=== PATIENT | male | born 1995 | race Caucasian/White ===

== ENCOUNTER 2017-02-14 23:40 | Inpatient (IN) | payer OTHER ==
[~2017-02-14] VITALS: Ht 170.2 cm; Wt 56.3 kg
[~2017-02-14 23:40] MED LIST: ACID REDUCER75 MG PO; BENTYL20 MG PO; FLOVENT 44120 INHALA IH; LORATADINE10 M3 PO; NAPROSYN500 MG PO; NASA MIST SALIN75 ML BOTH NARES; PROAIR HFA8.5 GM IH; ZOFRAN ODT4 MG PO
[2017-02-15 00:30] LABS: MCH 26.7 PG (29.0-34.0); MCHC 32.8 G/DL (30.0-36.0); MCV 81.4 FL (86-99); MEAN PLAT.VOLUME 9.2 uM^3 (9.0-12.4); PLATELET COUNT 494 K/uL (156-360); RBC DIS.WIDTH-CV 11.9 % (11.8-14.6); RBC DIS.WIDTH-SD 35.5 % (39-53); RED BLOOD COUNT 4.79 M/uL (4.00-5.50); WHITE BLOOD COUNT 13.7 K/uL (4.1-10.2)
[2017-02-15 00:39] LABS: CHLORIDE 102 mEq/L (99-109); POTASSIUM 3.6 mEq/L (3.7-5.4); SODIUM 139 mEq/L (136-147)
[2017-02-15 00:41] LABS: GLUCOSE 107 mg/dL (70-99)
[2017-02-15 00:43] LABS: ANION GAP 14 MEQ/L (2-14); TOTAL BILIRUBIN 0.5 mg/dL (0.0-1.0)
[2017-02-15 00:45] LABS: ALKALINE PHOSPHATASE 138 IU/L (3-129); GFR ESTIMATE (CALCULATED) > 59 mL/min/
[2017-02-15 00:46] LABS: UREA NITROGEN (BUN) 11 mg/dL (9-23)
[2017-02-15] MEDS ORDERED: NAPROXEN500 MG PO (00:46)
[2017-02-15 00:48] LABS: LIPASE 12 U/L (1.0-51.0)
[2017-02-15 01:53] LABS: BILIRUBIN NEGATIVE; BLOOD NEGATIVE; COLOR YELLOW ((YELLOW)); GLUCOSE (STRIP) NEGATIVE; KETONES 5; LEUKOCYTES NEGATIVE; NITRITE NEGATIVE; PROTEIN (STRIP) NEGATIVE; SPECIFIC GRAVITY 1.006 (1.000-1.030)
[2017-02-15 01:58] LABS: ADD MIUA? NO; UCUL ADDED? NO
[2017-02-15 03:28] VITALS: BP 134/86
[2017-02-15 08:00] VITALS: BP 134/94
[2017-02-15 12:00] VITALS: BP 129/85
[2017-02-15 16:15] VITALS: BP 132/86
[2017-02-15 20:08] VITALS: BP 133/85
[2017-02-15 22:56] VITALS: BP 137/96
[2017-02-16 06:22] LABS: BASOPHIL COUNT 0.1 K/uL (0-0.1); EOSINOPHIL (%) 1.5 % (0-5); EOSINOPHIL COUNT 0.2 K/uL (0-0.3); HEMATOCRIT 34.2 % (38.0-50.0); IMMATURE GRANULOCYTE (%) 1.3 % (0.0-0.7); IMMATURE GRANULOCYTE COUNT 0.2 K/uL; INSTRUMENT ABS NEUTROPHIL CT 10.8 K/uL; LYMPHOCYTE COUNT 1.8 K/uL (1.0-2.8); MCH 26.9 PG (29.0-34.0); MCHC 32.5 G/DL (30.0-36.0); MEAN PLAT.VOLUME 9.4 uM^3 (9.0-12.4); MONOCYTE (%) 10.7 % (3-12); MONOCYTE COUNT 1.6 K/uL (0-0.8); NEUTROPHIL COUNT 10.8 K/uL (1.8-6.4); PLATELET COUNT 396 K/uL (156-360); RBC DIS.WIDTH-CV 12.2 % (11.8-14.6); RBC DIS.WIDTH-SD 37.2 % (39-53); RED BLOOD COUNT 4.12 M/uL (4.00-5.50); WHITE BLOOD COUNT 14.6 K/uL (4.1-10.2)
[2017-02-16 08:28] VITALS: BP 132/77
[2017-02-16 09:18] LABS: INTER. NORMALIZED RATIO 1.4; PROTHROMBIN TIME 15.5 SEC (10.2-12.9)
[2017-02-16 09:21] LABS: PTT 28.2 SEC (25-37)
[2017-02-16 16:30] VITALS: BP 117/74
[2017-02-16 23:45] VITALS: BP 119/64
[2017-02-17 04:01] VITALS: BP 113/64
[2017-02-17 05:33] LABS: BASOPHIL COUNT 0.1 K/uL (0-0.1); EOSINOPHIL (%) 2.3 % (0-5); EOSINOPHIL COUNT 0.3 K/uL (0-0.3); HEMATOCRIT 34.1 % (38.0-50.0); IMMATURE GRANULOCYTE (%) 1.5 % (0.0-0.7); IMMATURE GRANULOCYTE COUNT 0.2 K/uL; INSTRUMENT ABS NEUTROPHIL CT 9.1 K/uL; LYMPHOCYTE COUNT 2.3 K/uL (1.0-2.8); MCHC 32.3 G/DL (30.0-36.0); MCV 83.8 FL (86-99); MEAN PLAT.VOLUME 9.5 uM^3 (9.0-12.4); MONOCYTE (%) 8.6 % (3-12); MONOCYTE COUNT 1.1 K/uL (0-0.8); NEUTROPHIL (%) 69.7 % (45-76); NEUTROPHIL COUNT 9.1 K/uL (1.8-6.4); PLATELET COUNT 416 K/uL (156-360); RBC DIS.WIDTH-CV 12.2 % (11.8-14.6); RBC DIS.WIDTH-SD 37.2 % (39-53); RED BLOOD COUNT 4.07 M/uL (4.00-5.50)
[2017-02-17 08:09] VITALS: BP 121/87
[2017-02-17 16:22] VITALS: BP 129/91
[2017-02-17 23:35] VITALS: BP 111/70
[2017-02-18 06:48] LABS: HEMATOCRIT 25.4 % (38.0-50.0); MCH 27.6 PG (29.0-34.0); NRBC (%) 0.2 /100 WBC (0-0); RBC DIS.WIDTH-CV 12.6 % (11.8-14.6); RBC DIS.WIDTH-SD 45.5 % (39-53); WHITE BLOOD COUNT 8.9 K/uL (4.1-10.2)
[2017-02-18 06:50] LABS: MCV 98.8 FL (86-99); RED BLOOD COUNT 2.57 M/uL (4.00-5.50)
[2017-02-18 07:03] LABS: MEAN PLAT.VOLUME 9.4 uM^3 (9.0-12.4)
[2017-02-18 07:09] LABS: PLATELET COUNT 270 K/uL (156-360)
[2017-02-18 08:08] VITALS: BP 121/80
[2017-02-18 09:19] LABS: HEMATOCRIT 36.7 % (38.0-50.0); MCH 26.9 PG (29.0-34.0); MCHC 31.3 G/DL (30.0-36.0); MEAN PLAT.VOLUME 9.4 uM^3 (9.0-12.4); RBC DIS.WIDTH-CV 12.5 % (11.8-14.6); RBC DIS.WIDTH-SD 39.2 % (39-53); WHITE BLOOD COUNT 11.9 K/uL (4.1-10.2)
[2017-02-18 09:22] LABS: MCV 85.9 FL (86-99); PLATELET COUNT 436 K/uL (156-360); RED BLOOD COUNT 4.27 M/uL (4.00-5.50)
[2017-02-18 16:16] VITALS: BP 131/92
[2017-02-18 23:17] VITALS: BP 117/78
[2017-02-19 07:05] LABS: BASOPHIL COUNT 0.1 K/uL (0-0.1); EOSINOPHIL (%) 3.5 % (0-5); EOSINOPHIL COUNT 0.5 K/uL (0-0.3); HEMATOCRIT 39.3 % (38.0-50.0); IMMATURE GRANULOCYTE (%) 1.6 % (0.0-0.7); IMMATURE GRANULOCYTE COUNT 0.2 K/uL; MCH 26.1 PG (29.0-34.0); MCHC 31.3 G/DL (30.0-36.0); MCV 83.3 FL (86-99); MONOCYTE (%) 8.7 % (3-12); MONOCYTE COUNT 1.2 K/uL (0-0.8); NEUTROPHIL (%) 71.4 % (45-76); PLATELET COUNT 476 K/uL (156-360); RBC DIS.WIDTH-CV 12.3 % (11.8-14.6); RBC DIS.WIDTH-SD 37.4 % (39-53); RED BLOOD COUNT 4.72 M/uL (4.00-5.50)
[2017-02-19 07:30] LABS: ALKALINE PHOSPHATASE 89 IU/L (3-129); ANION GAP 9 MEQ/L (2-14); CHLORIDE 105 MEQ/L (99-109); GFR ESTIMATE (CALCULATED) > 59 mL/min/; GLUCOSE 107 mg/dL (70-99); SAMPLE HEMOLYSIS CHECK 0; SAMPLE ICTERIC CHECK 0; SAMPLE LIPEMIA CHECK 0; SODIUM 140 MEQ/L (136-147); TOTAL BILIRUBIN 0.4 MG/DL (0.0-1.0); UREA NITROGEN (BUN) 4 mg/dL (9-23)
[2017-02-19 07:31] LABS: POTASSIUM 4.8 MEQ/L (3.7-5.4)
[2017-02-19 07:32] LABS: ALKALINE PHOSPHATASE 85 IU/L (3-129); ANION GAP 7 MEQ/L (2-14); CHLORIDE 106 MEQ/L (99-109); DIRECT BILIRUBIN 0.1 mg/dL (0.0-0.3); GFR ESTIMATE (CALCULATED) > 59 mL/min/; GLUCOSE 107 mg/dL (70-99); MAGNESIUM 2.1 mg/dl (1.3-2.7); POTASSIUM 4.7 MEQ/L (3.7-5.4); PREALBUMIN 14.2 mg/dL (10-40); SAMPLE HEMOLYSIS CHECK 0; SAMPLE ICTERIC CHECK 0; SAMPLE LIPEMIA CHECK 0; SODIUM 139 MEQ/L (136-147); TOTAL BILIRUBIN 0.4 MG/DL (0.0-1.0); UREA NITROGEN (BUN) 4 mg/dL (9-23)
[2017-02-19 07:47] LABS: TRIGLYCERIDES 73 MG/DL (Normal: <150)
[2017-02-19 08:17] VITALS: BP 125/79
[2017-02-19 15:16] VITALS: BP 147/86
[2017-02-19 23:34] VITALS: BP 112/77
[2017-02-20 06:50] LABS: BASOPHIL COUNT 0.1 K/uL (0-0.1); EOSINOPHIL (%) 3.5 % (0-5); EOSINOPHIL COUNT 0.5 K/uL (0-0.3); HEMATOCRIT 39.5 % (38.0-50.0); IMMATURE GRANULOCYTE (%) 1.1 % (0.0-0.7); IMMATURE GRANULOCYTE COUNT 0.2 K/uL; INSTRUMENT ABS NEUTROPHIL CT 11.2 K/uL; LYMPHOCYTE COUNT 1.8 K/uL (1.0-2.8); MCH 26.4 PG (29.0-34.0); MCHC 31.6 G/DL (30.0-36.0); MCV 83.5 FL (86-99); MONOCYTE (%) 7.9 % (3-12); MONOCYTE COUNT 1.2 K/uL (0-0.8); NEUTROPHIL (%) 74.7 % (45-76); NEUTROPHIL COUNT 11.2 K/uL (1.8-6.4); PLATELET COUNT 516 K/uL (156-360); RBC DIS.WIDTH-CV 12.2 % (11.8-14.6); RBC DIS.WIDTH-SD 37.3 % (39-53); RED BLOOD COUNT 4.73 M/uL (4.00-5.50)
[2017-02-20 07:21] LABS: ANION GAP 8 MEQ/L (2-14); CHLORIDE 104 MEQ/L (99-109); GFR ESTIMATE (CALCULATED) > 59 mL/min/; GLUCOSE 95 mg/dL (70-99); POTASSIUM 4.6 MEQ/L (3.7-5.4); SAMPLE HEMOLYSIS CHECK 0; SAMPLE ICTERIC CHECK 0; SAMPLE LIPEMIA CHECK 0; SODIUM 139 MEQ/L (136-147); UREA NITROGEN (BUN) 5 mg/dL (9-23)
[2017-02-20 07:58] VITALS: BP 133/79
[2017-02-20 15:35] VITALS: BP 118/84
[2017-02-20 23:32] VITALS: BP 126/73
[2017-02-21 05:00] VITALS: BP 119/83
[2017-02-21 06:41] LABS: ANION GAP 13 MEQ/L (2-14); CHLORIDE 101 MEQ/L (99-109); GFR ESTIMATE (CALCULATED) > 59 mL/min/; GLUCOSE 111 mg/dL (70-99); MAGNESIUM 1.7 mg/dl (1.3-2.7); POTASSIUM 4.2 MEQ/L (3.7-5.4); SAMPLE HEMOLYSIS CHECK 0; SAMPLE ICTERIC CHECK 0; SAMPLE LIPEMIA CHECK 0; SODIUM 135 MEQ/L (136-147); UREA NITROGEN (BUN) 12 mg/dL (9-23)
[2017-02-21 07:29] VITALS: BP 129/77
[2017-02-21 09:09] LABS: BASOPHIL COUNT 0.1 K/uL (0-0.1); EOSINOPHIL (%) 0.4 % (0-5); EOSINOPHIL COUNT 0.2 K/uL (0-0.3); IMMATURE GRANULOCYTE (%) 0.9 % (0.0-0.7); IMMATURE GRANULOCYTE COUNT 0.3 K/uL; INSTRUMENT ABS NEUTROPHIL CT 30.9 K/uL; LYMPHOCYTE COUNT 1.2 K/uL (1.0-2.8); MEAN PLAT.VOLUME 9.5 uM^3 (9.0-12.4); MONOCYTE (%) 4.3 % (3-12); MONOCYTE COUNT 1.5 K/uL (0-0.8); NEUTROPHIL (%) 90.5 % (45-76); NEUTROPHIL COUNT 30.9 K/uL (1.8-6.4); PLATELET COUNT 491 K/uL (156-360)
[2017-02-21 09:34] LABS: MCH 26.5 PG (29.0-34.0); MCHC 31.5 G/DL (30.0-36.0); MCV 84.2 FL (86-99); RBC DIS.WIDTH-CV 12.4 % (11.8-14.6); RBC DIS.WIDTH-SD 37.3 % (39-53); RED BLOOD COUNT 4.87 M/uL (4.00-5.50); WHITE BLOOD COUNT 34.2 K/uL (4.1-10.2)
[2017-02-21 15:31] VITALS: BP 130/78
[2017-02-21 23:23] VITALS: BP 123/81
[2017-02-22 06:24] LABS: HEMATOCRIT 36.3 % (38.0-50.0); MCH 26.6 PG (29.0-34.0); MCHC 31.7 G/DL (30.0-36.0); MCV 83.8 FL (86-99); RBC DIS.WIDTH-CV 12.7 % (11.8-14.6); RBC DIS.WIDTH-SD 38.6 % (39-53); RED BLOOD COUNT 4.33 M/uL (4.00-5.50); WHITE BLOOD COUNT 17.3 K/uL (4.1-10.2)
[2017-02-22 06:27] LABS: MEAN PLAT.VOLUME 9.5 uM^3 (9.0-12.4); PLAT.SUFFICIENCY INCREASED
[2017-02-22 06:39] LABS: PLATELET COUNT 337 K/uL (156-360)
[2017-02-22 06:55] LABS: ANION GAP 9 MEQ/L (2-14); CHLORIDE 111 MEQ/L (99-109); GFR ESTIMATE (CALCULATED) > 59 mL/min/; POTASSIUM 4.2 MEQ/L (3.7-5.4); SAMPLE HEMOLYSIS CHECK 0; SAMPLE ICTERIC CHECK 0; SAMPLE LIPEMIA CHECK 0; UREA NITROGEN (BUN) 9 mg/dL (9-23)
[2017-02-22 06:56] LABS: GLUCOSE 80 mg/dL (70-99); MAGNESIUM 2.2 mg/dl (1.3-2.7); SODIUM 142 MEQ/L (136-147)
[2017-02-22 07:52] VITALS: BP 115/72
[2017-02-22 08:22] LABS: ADD MIUA? NO; BILIRUBIN NEGATIVE; BLOOD NEGATIVE; COLOR STRAW ((YELLOW)); GLUCOSE (STRIP) NEGATIVE; KETONES NEGATIVE; LEUKOCYTES NEGATIVE; NITRITE NEGATIVE; PROTEIN (STRIP) NEGATIVE; SPECIFIC GRAVITY 1.009 (1.000-1.030); UCUL ADDED? NO; UROBILINOGEN 0.2 MG/DL (0.2-1.0)
[2017-02-22 09:30] LABS: C DIFF TOXIN POSITIVE (NEGATIVE)
[2017-02-22 10:11] LABS: PROBE CHECK PASS
[2017-02-22 15:58] VITALS: BP 122/68
[2017-02-22 23:38] VITALS: BP 119/84
[2017-02-23 07:01] LABS: BASOPHIL COUNT 0.1 K/uL (0-0.1); EOSINOPHIL (%) 2.3 % (0-5); EOSINOPHIL COUNT 0.3 K/uL (0-0.3); HEMATOCRIT 38.2 % (38.0-50.0); IMMATURE GRANULOCYTE (%) 1.7 % (0.0-0.7); IMMATURE GRANULOCYTE COUNT 0.2 K/uL; INSTRUMENT ABS NEUTROPHIL CT 10.4 K/uL; LYMPHOCYTE COUNT 1.7 K/uL (1.0-2.8); MCH 26.7 PG (29.0-34.0); MCHC 31.7 G/DL (30.0-36.0); MCV 84.3 FL (86-99); MEAN PLAT.VOLUME 9.8 uM^3 (9.0-12.4); MONOCYTE COUNT 1.7 K/uL (0-0.8); NEUTROPHIL (%) 71.7 % (45-76); NEUTROPHIL COUNT 10.4 K/uL (1.8-6.4); PLATELET COUNT 378 K/uL (156-360); RBC DIS.WIDTH-CV 12.8 % (11.8-14.6); RBC DIS.WIDTH-SD 38.9 % (39-53); RED BLOOD COUNT 4.53 M/uL (4.00-5.50); WHITE BLOOD COUNT 14.5 K/uL (4.1-10.2)
[2017-02-23 08:08] LABS: ALKALINE PHOSPHATASE 94 IU/L (3-129); ANION GAP 7 MEQ/L (2-14); CHLORIDE 105 MEQ/L (99-109); DIRECT BILIRUBIN 0.1 mg/dL (0.0-0.3); GFR ESTIMATE (CALCULATED) > 59 mL/min/; GLUCOSE 87 mg/dL (70-99); POTASSIUM 5.2 MEQ/L (3.7-5.4); PREALBUMIN 13.1 mg/dL (10-40); SAMPLE HEMOLYSIS CHECK 0; SAMPLE ICTERIC CHECK 0; SAMPLE LIPEMIA CHECK 0; SODIUM 138 MEQ/L (136-147); TOTAL BILIRUBIN 0.3 MG/DL (0.0-1.0); TRIGLYCERIDES 88 MG/DL (Normal: <150); UREA NITROGEN (BUN) 14 mg/dL (9-23)
[2017-02-23 08:22] VITALS: BP 120/75
[2017-02-23 16:37] VITALS: BP 120/80
[2017-02-23 23:27] VITALS: BP 113/73
[2017-02-24 08:34] LABS: HEMATOCRIT 37.6 % (38.0-50.0); MCH 26.3 PG (29.0-34.0); MCHC 31.6 G/DL (30.0-36.0); PLATELET COUNT 398 K/uL (156-360); RBC DIS.WIDTH-CV 12.8 % (11.8-14.6); RBC DIS.WIDTH-SD 38.5 % (39-53); RED BLOOD COUNT 4.53 M/uL (4.00-5.50); WHITE BLOOD COUNT 9.8 K/uL (4.1-10.2)
[2017-02-24 08:41] LABS: ANION GAP 8 MEQ/L (2-14); CHLORIDE 110 MEQ/L (99-109); GFR ESTIMATE (CALCULATED) > 59 mL/min/; GLUCOSE 98 mg/dL (70-99); MAGNESIUM 2.1 mg/dl (1.3-2.7); POTASSIUM 4.7 MEQ/L (3.7-5.4); SAMPLE HEMOLYSIS CHECK 0; SAMPLE ICTERIC CHECK 0; SAMPLE LIPEMIA CHECK 0; SODIUM 141 MEQ/L (136-147); UREA NITROGEN (BUN) 17 mg/dL (9-23)
[2017-02-24 09:49] LABS: URINE UREA NITROGEN 9251 MG/24 HR
[2017-02-24 10:14] VITALS: BP 129/83
[2017-02-24 14:30] VITALS: BP 127/80
[2017-02-24 23:10] VITALS: BP 120/69
[2017-02-25 06:21] LABS: ANION GAP 5 MEQ/L (2-14); CHLORIDE 107 MEQ/L (99-109); GFR ESTIMATE (CALCULATED) > 59 mL/min/; GLUCOSE 92 mg/dL (70-99); POTASSIUM 4.5 MEQ/L (3.7-5.4); SAMPLE HEMOLYSIS CHECK 0; SAMPLE ICTERIC CHECK 0; SAMPLE LIPEMIA CHECK 0; SODIUM 138 MEQ/L (136-147); UREA NITROGEN (BUN) 15 mg/dL (9-23)
[2017-02-25 07:30] VITALS: BP 122/78
[2017-02-25 11:55] VITALS: BP 126/80
[2017-02-25 14:08] LABS: HEMATOCRIT 40.5 % (38.0-50.0); MCH 26.6 PG (29.0-34.0); MCHC 31.6 G/DL (30.0-36.0); MEAN PLAT.VOLUME 10.6 uM^3 (9.0-12.4); PLATELET COUNT 411 K/uL (156-360); RBC DIS.WIDTH-CV 12.8 % (11.8-14.6); RBC DIS.WIDTH-SD 38.4 % (39-53); RED BLOOD COUNT 4.82 M/uL (4.00-5.50); WHITE BLOOD COUNT 11.4 K/uL (4.1-10.2)
[2017-02-25 15:22] VITALS: BP 122/80
[2017-02-26 00:05] VITALS: BP 121/67
[2017-02-26 06:21] LABS: ANION GAP 6 MEQ/L (2-14); CHLORIDE 108 MEQ/L (99-109); GFR ESTIMATE (CALCULATED) > 59 mL/min/; GLUCOSE 86 mg/dL (70-99); MAGNESIUM 1.9 mg/dl (1.3-2.7); POTASSIUM 4.1 MEQ/L (3.7-5.4); SAMPLE HEMOLYSIS CHECK 0; SAMPLE ICTERIC CHECK 0; SAMPLE LIPEMIA CHECK 0; SODIUM 140 MEQ/L (136-147); UREA NITROGEN (BUN) 15 mg/dL (9-23)
[2017-02-26 07:43] VITALS: BP 109/65
[2017-02-26 08:30] LABS: HEMATOCRIT 37.9 % (38.0-50.0); MCH 26.7 PG (29.0-34.0); MCHC 31.7 G/DL (30.0-36.0); MCV 84.2 FL (86-99); MEAN PLAT.VOLUME 10.5 uM^3 (9.0-12.4); PLATELET COUNT 377 K/uL (156-360); RBC DIS.WIDTH-CV 12.8 % (11.8-14.6); RBC DIS.WIDTH-SD 38.4 % (39-53); WHITE BLOOD COUNT 11.8 K/uL (4.1-10.2)
[2017-02-26 15:46] VITALS: BP 122/84
[2017-02-26 23:18] VITALS: BP 120/65
[2017-02-27 07:54] LABS: ANION GAP 6 MEQ/L (2-14); CHLORIDE 106 MEQ/L (99-109); GFR ESTIMATE (CALCULATED) > 59 mL/min/; GLUCOSE 96 mg/dL (70-99); POTASSIUM 4.3 MEQ/L (3.7-5.4); SAMPLE HEMOLYSIS CHECK 0; SAMPLE ICTERIC CHECK 0; SAMPLE LIPEMIA CHECK 0; SODIUM 139 MEQ/L (136-147); UREA NITROGEN (BUN) 16 mg/dL (9-23)
[2017-02-27 08:02] VITALS: BP 124/85
[2017-02-27 16:00] VITALS: BP 120/62
[2017-02-27 23:58] VITALS: BP 104/74
[2017-02-28 07:05] LABS: ANION GAP 8 MEQ/L (2-14); CHLORIDE 101 MEQ/L (99-109); GFR ESTIMATE (CALCULATED) > 59 mL/min/; GLUCOSE 82 mg/dL (70-99); MAGNESIUM 1.9 mg/dl (1.3-2.7); POTASSIUM 4.6 MEQ/L (3.7-5.4); SAMPLE HEMOLYSIS CHECK 0; SAMPLE ICTERIC CHECK 0; SAMPLE LIPEMIA CHECK 0; SODIUM 134 MEQ/L (136-147); UREA NITROGEN (BUN) 17 mg/dL (9-23)
[2017-02-28 08:02] VITALS: BP 138/92
[2017-02-28] MEDS ORDERED: DELZICOL400 M1 PO (10:27)
[2017-02-28] MEDS ORDERED: FLAGYL500 MG PO (10:37)
[2017-02-28] MEDS ORDERED: LEVAQUIN500 MG PO (10:38)
[2017-02-28 11:12] LABS: HEMATOCRIT 42.1 % (38.0-50.0); MCH 26.7 PG (29.0-34.0); MCHC 32.5 G/DL (30.0-36.0); MCV 81.9 FL (86-99); MEAN PLAT.VOLUME 10.3 uM^3 (9.0-12.4); PLATELET COUNT 442 K/uL (156-360); RBC DIS.WIDTH-CV 13.2 % (11.8-14.6); RBC DIS.WIDTH-SD 38.3 % (39-53); RED BLOOD COUNT 5.14 M/uL (4.00-5.50); WHITE BLOOD COUNT 22.8 K/uL (4.1-10.2)
[2017-02-28 16:04] VITALS: BP 119/80
[2017-02-28 23:30] VITALS: BP 122/90
[2017-03-01 08:14] VITALS: BP 132/80
== END 2017-03-01 13:17 | disposition home or self-care (01) | DRG 385 ==
LOC: EME 23:40 → 3EAST 02-15 02:25 → EDOF 02-15 02:25 → ENRESERV 02-15 02:32 → 3EAST 02-15 03:15
PROVIDERS: Physician Assistant; Physician Assistant Surgical; Radiology Diagnostic Radiology; Surgery
PROC: 0W9J3ZZ Drainage of Pelvic Cavity, Percutaneous Approach (ICD-10-PCS; principal; 2017-02-16)
PROC: 3E0436Z Introduction of Nutritional Substance into Central Vein, Percutaneous Approach (ICD-10-PCS; 2017-02-19)
DX: K50.014 Crohn's disease of small intestine with abscess (principal); K65.1 Peritoneal abscess; K50.018 Crohn's disease of small intestine with other complication; K63.1 Perforation of intestine (nontraumatic); A04.72 Enterocolitis due to Clostridium difficile, not specified as recurrent; E44.0 Moderate protein-calorie malnutrition; B95.4 Other streptococcus as the cause of diseases classified elsewhere; J45.909 Unspecified asthma, uncomplicated; K21.9 Gastro-esophageal reflux disease without esophagitis; K59.00 Constipation, unspecified; G43.909 Migraine, unspecified, not intractable, without status migrainosus; Z87.820 Personal history of traumatic brain injury; Z87.891 Personal history of nicotine dependence
CPT/HCPCS: 71010; 74176; 74177; 75989; 76937; 80048; 80053; 80076; 81003; 81050; 83605; 83690; 83735; 84100; 84134; 84478; 84540; 84630 90; 85025; 85027; 85610; 85730; 87040; 87070; 87075; 87076; 87086; 87205; 87493; 99281; 99284; 99285; J1650; J1885; J2543; J3010; J3243; J3475; J3480; J7030; J7050; S0028; S0030

== ENCOUNTER → 2017-03-25 | Outpatient (CLI) | payer OTHER ==
[~2017-03-25] VITALS: Ht 167.6 cm; Wt 54.9 kg
[~2017-03-25] MED LIST changes: +AZULFIDINE500 MG PO; +CLARITIN,ALAVAR10 MG PO; +DELZICOL400 M1 PO; +FLAGYL500 MG PO; +LEVAQUIN500 MG PO; -LORATADINE10 M3 PO; +NAPROSYN375 MG PO; +NAPROXEN500 MG PO; -NASA MIST SALIN75 ML BOTH NARES; +NASONEX17 GM BOTH NARES; +TYLENOL EXTRA500 MG PO
== END | disposition home or self-care (01) ==
LOC: AMB 12:12
DX: K50.00 Crohn's disease of small intestine without complications (principal); A04.72 Enterocolitis due to Clostridium difficile, not specified as recurrent; K56.690 Other partial intestinal obstruction; R93.3 Abnormal findings on diagnostic imaging of other parts of digestive tract; Z86.19 Personal history of other infectious and parasitic diseases
CPT/HCPCS: 88305; J2405; J2710; J3010